=== PATIENT | female | born 1975 | race Two or more races ===

== ENCOUNTER 2022-01-02 23:04 | Emergency (ER) | payer OTHER ==
[~2022-01-02] VITALS: Ht 165.1 cm; Wt 108.9 kg
[2022-01-03] MEDS ORDERED: VALTREX1000 MG PO (01:07)
[2022-01-03] MEDS ORDERED: ZITHROMAX500 MG PO (01:07)
[2022-01-03] MEDS ORDERED: ZOVIRAX30 GM TOP (01:08)
[2022-01-03] MEDS ORDERED: CORTISPORIN EAR10 M1 OPHT (01:09)
== END 2022-01-03 01:21 | disposition home or self-care (01) ==
LOC: ER 23:04
DX: H60.8X2 Other otitis externa, left ear (principal); K08.89 Other specified disorders of teeth and supporting structures